=== PATIENT | female | born 1995 | race Caucasian/White ===

== ENCOUNTER 2019-02-05 12:57 | Emergency (ER) | payer OTHER ==
--- NOTE | 2019-02-05 13:09 | PDOC ---
Rapid Medical Evaluation Time Seen by Provider: 02/05/19 12:59 Medical Evaluation: Allergies Allergy/AdvReac Type Severity Reaction Status Date / Time No Known Allergies Allergy Verified 11/08/14 12:30 02/05/19 13:06 I have performed a brief in-person evaluation of this patient. The patient presents with a chief complaint of: 2 weeks of chest pain, cough/ headache since today, saw PCP yesterday. has IUD no OCP, denies recent travel/ surgeries. hx of asthma/anemia Pertinent physical exam findings: lungs CTAB I have ordered the following: labs, EKG The patient will proceed to the ED for further evaluation. Discharge Disposition - Diagnosis Chest pain - Referrals - Patient Instructions - Post Discharge Activity
[2019-02-05 13:10] VITALS: BP 132/64; PULSE 81; TEMP 98.3; BMI 20.5
[2019-02-05 13:33] LABS: BASO % 0.5 % (0-2.0); EOS % 2.2 % (0-4.5); HEMATOCRIT 39.6 % (32.4-45.2); HEMOGLOBIN 13.1 GM/dL (10.7-15.3); LYMPH % 32.7 % (8-40); MCH 28.2 pg (25.7-33.7); MEAN CELL VOLUME 85.4 fl (80-96); MEAN PLT VOLUME 8.1 fl (7.5-11.1); MONO % 7.7 % (3.8-10.2); NEUT % 56.9 % (42.8-82.8); PLATELET COUNT 316 K/MM3 (134-434); RBC 4.64 M/mm3 (3.60-5.2); RDW 14.8 % (11.6-15.6); WHITE BLOOD COUNT 7.2 K/mm3 (4.0-10.0)
[2019-02-05] MEDS ORDERED: predniSONE 20 MG TABLET (UD) ONE (14:01)
[2019-02-05] MEDS ORDERED: ALBUTEROL SO4 0.083% IH SOL 2.5 MG/3 ML VIAL.NEB. NEB ONE (14:01)
[2019-02-05] MEDS ORDERED: predniSONE 20 MG TABLET (UD) PO ONE (14:02)
--- NOTE | 2019-02-05 14:05 | PDOC ---
History of Present Illness - General Chief Complaint: Chest Pain Stated Complaint: CHEST PAIN Time Seen by Provider: 02/05/19 12:59 History Source: Patient Exam Limitations: No Limitations - History of Present Illness Initial Comments: 02/05/19 16:54 Patient came for evaluation of chest pain for the past 3 weeks. States was seen by her PMD who encouraged anti-inflammatories but also due to her significant family history of mother with 2 CVAs in an early age and father with an IN before the age of 40 felt she needed to have further evaluation. She ordered some laboratory work to be drawn which she went for yesterday, but states per direction of PMD instructed to come to emergency department if chest pain was recurrent. Patient also states this morning woke up with a call and felt some chest tightness. Denies numbness or tingling to hands or feet, denies any dizziness. However states has pain with movement, and some mild shortness of breath. Suffers from asthma but has not used her inhaler 02/05/19 17:36 Is this a multiple visit Asthma Patient?: No Timing/Duration: reports: intermittent Severity: reports: mild Associated Symptoms: reports: cough, fever/chills, nasal congestion Past History - Travel Traveled outside of the country in the last 30 days: No Close contact w/someone who was outside of country & ill: No - Past Medical History Allergies/Adverse Reactions: Allergies Allergy/AdvReac Type Severity Reaction Status Date / Time metoclopramide [From Reglan] Allergy Severe Difficulty Verified 02/05/19 13:10 Breathing Home Medications: Ambulatory Orders Ibuprofen [Motrin -] 600 mg PO TID PRN #21 tablet 11/08/14 Oxycodone HCl/Acetaminophen [Percocet 5/325 -] 1 tab PO Q6H PRN #20 tablet 11/08 Albuterol Sulfate Inhaler - [Ventolin HFA Inhaler -] 1 - 2 inh PO Q4H #1 inhaler 02/05/19 predniSONE [Deltasone -] 20 mg PO BID #8 tablet 02/05/19 Anemia: Yes Asthma: Yes COPD: No - Immunization History Immunization Up to Date: Yes - Psycho Social/Smoking Cessation Hx Smoking History: Never smoked Have you smoked in the past 12 months: No Information on smoking cessation initiated: No Hx Alcohol Use: No Drug/Substance Use Hx: No Substance Use Type: None Review of Systems - Review of Systems Able to Perform ROS?: Yes Is the patient limited Vietnamese proficient: Yes Constitutional: Yes: Symptoms Reported, See HPI, Malaise. No: Chills, Fever HEENTM: No: Symptoms Reported Respiratory: Yes: Symptoms reported, See HPI, Cough, Shortness of Breath, Wheezing Cardiac (ROS): Yes: Symptoms Reported, See HPI, Chest Pain : Yes: Symptoms Reported Musculoskeletal: Yes: Symptoms Reported, See HPI All Other Systems: Reviewed and Negative *Physical Exam - Vital Signs Last Vital Signs Temp Pulse Resp BP Pulse Ox 98.3 F 81 18 132/64 100 02/05/19 13:08 02/05/19 13:08 02/05/19 13:08 02/05/19 13:08 02/05/19 13:08 - Physical Exam General Appearance: Yes: Nourished, Appropriately Dressed. No: Apparent Distress HEENT: positive: DANNA, Normal ENT Inspection, TMs Normal, Pharynx Normal Neck: positive: Supple. negative: Tender, Lymphadenopathy (R), Lymphadenopathy (L) Respiratory/Chest: positive: Chest Tender, Lungs Clear (But diminished,), Wheezing (Some tightness with deep inspiration but able to take deep breaths, also reproduces some mild pleuritic type chest pain) Cardiovascular: positive: Regular Rate Gastrointestinal/Abdominal: positive: Soft. 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, Fully Oriented, Alert, Normal Mood/ Affect, Normal Response, Motor Strength 5/5 Heart Score/ECG Review - ECG Intrepretation Rhythm: Regular Rhythm - ST and T Non Specific ST-T Wave changes: No - ECG Impressions Normal ECG: Yes Non-specific ST Elevation: No Ischemic Changes: No ED Treatment Course - LABORATORY CBC & Chemistry Diagram: 02/05/19 13:10 02/05/19 13:10 - ADDITIONAL ORDERS Additional order review: 02/05/19 13:10 RBC 4.64 MCV 85.4 MCHC 33.0 RDW 14.8 MPV 8.1 Neutrophils % 56.9 Lymphocytes % 32.7 Monocytes % 7.7 Eosinophils % 2.2 Basophils % 0.5 ED Progress Note - Progress Note Progress Note: 02/05/19 17:01 Much improved after albuterol nebulizer and prednisone, will treat for some asthma exacerbation and encourage patient to follow-up. Discussed need to return to emergency department if symptoms recur or worsen, however much of this chest pain that has been chronic now in nature could be related to her respiratory status. Patient agrees feels better and will follow-up as scheduled next Saturday02/05/19 17:30 Discharge - Discharge Information Problems reviewed: Yes Clinical Impression/Diagnosis: Chest pain Qualifiers: Chest pain type: chest pain on breathing Qualified Code(s): R07.1 - Chest pain on breathing Asthma Qualifiers: Asthma severity: moderate Asthma persistence: unspecified Asthma complication type: unspecified Qualified Code(s): J45.909 - Unspecified asthma, uncomplicated Condition: Stable Disposition: HOME - Admission No - Additional Discharge Information Prescriptions: Albuterol Sulfate Inhaler - [Ventolin HFA Inhaler -] 1 - 2 inh PO Q4H #1 inhaler predniSONE [Deltasone -] 20 mg PO BID #8 tablet - Follow up/Referral Referrals: Bala Pitts MD [Primary Care Provider] - - Patient Discharge Instructions Patient Printed Discharge Instructions: DI for Asthma -- Adult Additional Instructions: Rest, drink lots of fluids: Teas, water, soups, Pedialyte Saltwater gargles Steamy showers/seem to face break up mucus Avoid contact with others until fevers and cough resolved Lots of handwashing and good hygiene Continue [id number] medications for symptomatic relief Tylenol or Motrin for fever and pain Continue albuterol nebulizers every 4-6 hours for the next 2 days then as needed for continued cough Prednisone as directed until completed Followup with private physician in one to 2 days Return to emergency department / pediatric hospital for worsened symptoms, fevers, dehydration - Post Discharge Activity Work/Back to School Note: Back to Work
[2019-02-05 14:06] LABS: ALBUMIN 3.7 g/dl (3.4-5.0); BILIRUBIN,TOTAL 0.1 mg/dL (0.2-1); BLOOD UREA NITROGEN 10.8 mg/dL (7-18); CALCIUM 8.8 mg/dL (8.5-10.1); CREATININE 0.6 mg/dL (0.55-1.3); POTASSIUM 3.9 mmol/L (3.5-5.1); TOT PROT 6.8 g/dl (6.4-8.2)
--- NOTE | 2019-02-05 14:30 | PDOC ---
History of Present Illness - General Chief Complaint: Chest Pain Stated Complaint: CHEST PAIN Time Seen by Provider: 02/05/19 12:59 History Source: Patient Exam Limitations: No Limitations - History of Present Illness Is this a multiple visit Asthma Patient?: No Past History - Past Medical History Allergies/Adverse Reactions: Allergies Allergy/AdvReac Type Severity Reaction Status Date / Time metoclopramide [From Reglan] Allergy Severe Difficulty Verified 02/05/19 13:10 Breathing Home Medications: Ambulatory Orders Ibuprofen [Motrin -] 600 mg PO TID PRN #21 tablet 11/08/14 Oxycodone HCl/Acetaminophen [Percocet 5/325 -] 1 tab PO Q6H PRN #20 tablet 11/08 Albuterol Sulfate Inhaler - [Ventolin HFA Inhaler -] 1 - 2 inh PO Q4H #1 inhaler 02/05/19 predniSONE [Deltasone -] 20 mg PO BID #8 tablet 02/05/19 Anemia: Yes Asthma: Yes COPD: No - Immunization History Immunization Up to Date: Yes - Psycho Social/Smoking Cessation Hx Smoking History: Never smoked Have you smoked in the past 12 months: No Information on smoking cessation initiated: No Hx Alcohol Use: No Drug/Substance Use Hx: No Substance Use Type: None *Physical Exam - Vital Signs Last Vital Signs Temp Pulse Resp BP Pulse Ox 98.3 F 81 18 132/64 100 02/05/19 13:08 02/05/19 13:08 02/05/19 13:08 02/05/19 13:08 02/05/19 13:08 ED Treatment Course - LABORATORY CBC & Chemistry Diagram: 02/05/19 13:10 02/05/19 13:10 - ADDITIONAL ORDERS Additional order review: Laboratory Results 02/05/19 13:10 Sodium 140 Potassium 3.9 Chloride 107 Carbon Dioxide 28 Anion Gap 5 L BUN 10.8 Creatinine 0.6 Est GFR (CKD-EPI)AfAm 148.90 Est GFR (CKD-EPI)NonAf 128.48 Random Glucose 96 Calcium 8.8 Total Bilirubin 0.1 L AST 14 L ALT 17 Alkaline Phosphatase 97 Total Protein 6.8 Albumin 3.7 02/05/19 13:10 RBC 4.64 MCV 85.4 MCHC 33.0 RDW 14.8 MPV 8.1 Neutrophils % 56.9 Lymphocytes % 32.7 Monocytes % 7.7 Eosinophils % 2.2 Basophils % 0.5 - Medications Given in the ED: ED Medications Discontinued Medications Generic Name Dose Route Start Last Admin Trade Name Rosibel PRN Reason Stop Dose Admin Albuterol Sulfate 1 amp 02/05/19 14:01 02/05/19 14:08 Ventolin 0.083% Nebulizer Soln - NEB 02/05/19 14:02 1 amp ONCE ONE Administration Prednisone 40 mg 02/05/19 14:02 02/05/19 14:08 Deltasone - PO 02/05/19 14:03 40 mg ONCE ONE Administration Discharge - Discharge Information Problems reviewed: Yes Clinical Impression/Diagnosis: Chest pain Qualifiers: Chest pain type: chest pain on breathing Qualified Code(s): R07.1 - Chest pain on breathing Asthma Qualifiers: Asthma severity: moderate Asthma persistence: unspecified Asthma complication type: unspecified Qualified Code(s): J45.909 - Unspecified asthma, uncomplicated Condition: Stable Disposition: HOME - Admission No - Additional Discharge Information Prescriptions: Albuterol Sulfate Inhaler - [Ventolin HFA Inhaler -] 1 - 2 inh PO Q4H #1 inhaler predniSONE [Deltasone -] 20 mg PO BID #8 tablet - Follow up/Referral Referrals: Bala Pitts MD [Primary Care Provider] - - Patient Discharge Instructions Patient Printed Discharge Instructions: DI for Asthma -- Adult Additional Instructions: Rest, drink lots of fluids: Teas, water, soups, Pedialyte Saltwater gargles Steamy showers/seem to face break up mucus Avoid contact with others until fevers and cough resolved Lots of handwashing and good hygiene Continue [id number] medications for symptomatic relief Tylenol or Motrin for fever and pain Continue albuterol nebulizers every 4-6 hours for the next 2 days then as needed for continued cough Prednisone as directed until completed Followup with private physician in one to 2 days Return to emergency department / pediatric hospital for worsened symptoms, fevers, dehydration - Post Discharge Activity Work/Back to School Note: Back to Work
--- NOTE | 2019-02-06 12:56 | EKG ---
Test Reason : Blood Pressure : / mmHG Vent. Rate : 083 BPM Atrial Rate : 083 BPM P-R Int : 142 ms QRS Dur : 084 ms QT Int : 392 ms P-R-T Axes : 073 086 067 degrees QTc Int : 460 ms NORMAL SINUS RHYTHM WITH SINUS ARRHYTHMIA NONSPECIFIC T WAVE ABNORMALITY WHEN COMPARED WITH ECG OF 02-AUG-2014 22:47, NO SIGNIFICANT CHANGE WAS FOUND Confirmed by DEEPA KENNY MD ([id number]) on 02/06/2019 12:55:53 PM Referred By: Confirmed By:DEEPA KENNY MD
== END 2019-02-05 14:35 | disposition home or self-care (01) ==
LOC: JERFT 12:57
PROC: 3E0F7GC Introduction of Other Therapeutic Substance into Respiratory Tract, Via Natural or Artificial Opening (ICD-10-PCS; principal; 2019-02-05)
DX: J45.909 Unspecified asthma, uncomplicated (principal); R07.1 Chest pain on breathing; Z86.2 Personal history of diseases of the blood and blood-forming organs and certain disorders involving the immune mechanism; Z88.8 Allergy status to other drugs, medicaments and biological substances
CPT/HCPCS: 36415; 71046-TC-FY; 80053; 85025; 93005; 93010; 99282-25

== ENCOUNTER 2019-06-22 19:35 | Emergency (ER) | payer OTHER ==
[2019-06-22 19:55] VITALS: BP 122/70; PULSE 90; TEMP 98.2; BMI 20.7
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
[2019-06-22 22:42] LABS: PH,URINE 6.5 (5.0-8.0); URINE APPEARANCE CLEAR; URINE BILIRUBIN NEGATIVE (NEGATIVE); URINE COLOR YELLOW; URINE GLUCOSE (UA) NEGATIVE (NEGATIVE); URINE KETONE TRACE (NEGATIVE); URINE LEUK ESTERASE NEGATIVE (NEGATIVE); URINE NITRITE NEGATIVE (NEGATIVE); URINE PROTEIN 30 (NEGATIVE)
[2019-06-22] MEDS ORDERED: KETOROLAC TROMETHAMINE 30 MG/1 ML VIAL IM ONE (22:47)
[2019-06-22] MEDS ORDERED: ONDANSETRON *ODT* 4 MG TABLET SL ONE (22:47)
[2019-06-22] MEDS ORDERED: KETOROLAC TROMETHAMINE 30 MG/1 ML VIAL ONE (23:01)
[2019-06-22] MEDS ORDERED: ONDANSETRON *ODT* 4 MG TABLET ONE (23:02)
== END 2019-06-22 23:08 | disposition home or self-care (01) ==
LOC: JERFT 19:35
PROC: 3E0233Z Introduction of Anti-inflammatory into Muscle, Percutaneous Approach (ICD-10-PCS; principal; 2019-06-22)
DX: S06.0X0A Concussion without loss of consciousness, initial encounter (principal); Y04.2XXA Assault by strike against or bumped into by another person, initial encounter; Y93.89 Activity, other specified; Y92.89 Other specified places as the place of occurrence of the external cause; Y99.8 Other external cause status; Y07.9 Unspecified perpetrator of maltreatment and neglect; Z86.2 Personal history of diseases of the blood and blood-forming organs and certain disorders involving the immune mechanism; Z87.09 Personal history of other diseases of the respiratory system; Z88.8 Allergy status to other drugs, medicaments and biological substances
CPT/HCPCS: 70450-TC; 81003; 84703; 96372; 99284-25; Q0162

== ENCOUNTER 2020-05-25 17:56 | Emergency (ER) | payer OTHER ==
[2020-05-25 18:31] VITALS: BP 99/59; PULSE 94; TEMP 99.2; BMI 20.5
[2020-05-25 22:43] LABS: URINE APPEARANCE CLEAR; URINE BILIRUBIN NEGATIVE (NEGATIVE); URINE COLOR YELLOW; URINE GLUCOSE (UA) NEGATIVE (NEGATIVE); URINE KETONE TRACE (NEGATIVE); URINE LEUK ESTERASE NEGATIVE (NEGATIVE); URINE NITRITE NEGATIVE (NEGATIVE); URINE PROTEIN NEGATIVE (NEGATIVE); URINE UROBILINOGEN 0.2 mg/dL (0.2-1.0)
[2020-05-25 22:50] LABS: ALBUMIN 3.9 g/dl (3.4-5.0); CALCIUM 9.1 mg/dL (8.5-10.1)
[2020-05-25 22:54] LABS: BILIRUBIN,TOTAL 0.3 mg/dL (0.2-1); TOT PROT 7.4 g/dl (6.4-8.2)
[2020-05-25 22:58] LABS: BLOOD UREA NITROGEN 10.5 mg/dL (7-18); CREATININE 0.6 mg/dL (0.55-1.3); POTASSIUM 4.1 mmol/L (3.5-5.1)
[2020-05-26 00:14] LABS: BASO % 0.2 % (0-2.0); EOS % 1.2 % (0-4.5); HEMATOCRIT 37.9 % (32.4-45.2); HEMOGLOBIN 12.5 GM/dL (10.7-15.3); LYMPH % 35.8 % (8-40); MCH 27.9 pg (25.7-33.7); MCHC 32.9 g/dl (32.0-36.0); MEAN CELL VOLUME 84.7 fl (80-96); MEAN PLT VOLUME 8.8 fl (7.5-11.1); MONO % 5.8 % (3.8-10.2); PLATELET COUNT 368 K/MM3 (134-434); RBC 4.48 M/mm3 (3.60-5.2); RDW 14.1 % (11.6-15.6); WHITE BLOOD COUNT 9.4 K/mm3 (4.0-10.0)
[2020-05-26 00:19] LABS: INR 1.21 (0.83-1.09); PROTHROMBIN TIME (PATIENT) 14.8 SEC (9.7-13.0)
[2020-05-26 00:22] LABS: ACTIVATED PTT 43.2 SECONDS (25.2-36.5)
== END 2020-05-26 00:58 | disposition home or self-care (01) ==
LOC: JER 17:56
DX: O26.891 Other specified pregnancy related conditions, first trimester (principal); Z3A.01 Less than 8 weeks gestation of pregnancy
CPT/HCPCS: 36415; 76817-TC; 80053; 81003; 84702; 84703; 85025; 85610; 85730; 86850; 86900; 86901; 99284-25

== ENCOUNTER 2020-05-28 20:59 | Emergency (ER) | payer OTHER ==
[2020-05-28 21:10] VITALS: BP 104/56; PULSE 96; TEMP 98.5; BMI 20.5
== END 2020-05-28 22:40 | disposition home or self-care (01) ==
LOC: JER 20:59
DX: Z32.01 Encounter for pregnancy test, result positive (principal); Z3A.01 Less than 8 weeks gestation of pregnancy
CPT/HCPCS: 36415; 84702; 99283-25

== ENCOUNTER 2021-01-13 16:05 | Emergency (ER) | payer OTHER ==
[2021-01-13 16:26] VITALS: BMI 26.1
[2021-01-13] MEDS ORDERED: ACETAMINOPHEN 1000 MG/100 ML VIAL (NON FORMULARY) IVPB ONE (17:43)
[2021-01-13] MEDS: ALBUTEROL SO4 2.5/IPRATROPIUM 0.5 INH SOL 3 ML VIAL.NEB. NEB SCH ×3 (18:00→18:30)
[2021-01-13] MEDS ORDERED: ACETAMINOPHEN INJECTION 100 ML IVPB ONE (18:01)
[2021-01-13] MEDS ORDERED: ALBUTEROL SO4 2.5/IPRATROPIUM 0.5 INH SOL 3 ML VIAL.NEB. NEB ONE (18:01)
[2021-01-13 19:38] LABS: HEMATOCRIT 30.4 % (32.4-45.2); HEMOGLOBIN 9.8 GM/dL (10.7-15.3); MCH 23.3 pg (25.7-33.7); MCHC 32.3 g/dl (32.0-36.0); MEAN CELL VOLUME 72.1 fl (80-96); MEAN PLT VOLUME 7.2 fl (7.5-11.1); PLATELET COUNT 274 10^3/uL (134-434); RBC 4.22 M/mm3 (3.60-5.2); RDW 24.2 % (11.6-15.6)
[2021-01-13 19:43] LABS: CHLORIDE 107 mmol/L (98-107); SODIUM 138 mmol/L (136-145)
[2021-01-13 19:47] LABS: CALCIUM 8.1 mg/dL (8.5-10.1)
[2021-01-13 19:48] LABS: ALBUMIN 2.3 g/dl (3.4-5.0); ANION GAP 8 MMOL/L (8-16); BLOOD UREA NITROGEN 5.1 mg/dL (7-18); CO2 24 mmol/L (21-32); GLUCOSE,RANDOM 71 mg/dL (74-106)
[2021-01-13 19:51] LABS: CREATININE 0.4 mg/dL (0.55-1.3); SGOT/AST 81 U/L (15-37); SGPT/ALT 70 U/L (13-61)
[2021-01-13 19:52] LABS: TOT PROT 6.1 g/dl (6.4-8.2)
[2021-01-13 19:53] LABS: BILIRUBIN,TOTAL 0.2 mg/dL (0.2-1)
[2021-01-13 19:54] LABS: ALK PHOS 143 U/L (45-117)
[2021-01-13 19:56] LABS: N-TERMINAL BNP 214.9 pg/ml (5-125)
[2021-01-13 21:31] LABS: ANISOCYTOSIS 3+; MACROCYTOSIS 0; OVALOCYTE 1+; PLATELET ESTIMATE NORMAL; TARGET CELLS 1+
[2021-01-14 00:02] VITALS: BP 104/53; PULSE 100; TEMP 98.4
== END 2021-01-13 23:17 | disposition home or self-care (01) ==
LOC: JER 16:05
PROC: 3E0333Z Introduction of Anti-inflammatory into Peripheral Vein, Percutaneous Approach (ICD-10-PCS; principal; 2021-01-13)
PROC: 3E0F7GC Introduction of Other Therapeutic Substance into Respiratory Tract, Via Natural or Artificial Opening (ICD-10-PCS; 2021-01-13)
DX: O99.513 Diseases of the respiratory system complicating pregnancy, third trimester (principal); J45.901 Unspecified asthma with (acute) exacerbation; Z3A.37 37 weeks gestation of pregnancy
CPT/HCPCS: 36415; 80053; 82550; 83880; 84484; 85025; 93005; 93010; 99284-25; C9803; J0131; U0003; U0005

== ENCOUNTER 2021-07-09 15:27 | Emergency (ER) | payer OTHER ==
[2021-07-09 15:32] VITALS: BP 111/71; PULSE 67; TEMP 97; BMI 23.6
[2021-07-09] MEDS ORDERED: SODIUM CHLORIDE 0.9% 500 ML INFUS.BAG IV ONE (16:20)
[2021-07-09 16:57] LABS: BASO % 0.2 % (0-2.0); EOS % 2.9 % (0-4.5); HEMATOCRIT 37.2 % (32.4-45.2); HEMOGLOBIN 12.3 GM/dL (10.7-15.3); LYMPH % 33.5 % (8-40); MCH 28.1 pg (25.7-33.7); MCHC 33.2 g/dl (32.0-36.0); MEAN CELL VOLUME 84.7 fl (80-96); MEAN PLT VOLUME 7.5 fl (7.5-11.1); MONO % 4.6 % (3.8-10.2); NEUT % 58.8 % (42.8-82.8); PLATELET COUNT 377 10^3/uL (134-434); RBC 4.39 M/mm3 (3.60-5.2); RDW 16.6 % (11.6-15.6); WHITE BLOOD COUNT 7.2 K/mm3 (4.0-10.0)
[2021-07-09 17:00] LABS: EPI CELLS 6 /uL (0-25.1); HYALINE CASTS 0 /uL (0-3.1); PH,URINE 7.5 (5.0-8.0); URINE APPEARANCE CLEAR; URINE BACTERIA 21 /uL (0-1359); URINE BILIRUBIN NEGATIVE (NEGATIVE); URINE COLOR YELLOW; URINE GLUCOSE (UA) NEGATIVE (NEGATIVE); URINE KETONE NEGATIVE (NEGATIVE); URINE LEUK ESTERASE NEGATIVE (NEGATIVE); URINE NITRITE NEGATIVE (NEGATIVE); URINE PROTEIN NEGATIVE (NEGATIVE); URINE RBC 307 /uL (0-23.9); URINE WBC 4 /uL (0-25.8)
[2021-07-09 17:22] LABS: CHLORIDE 108 mmol/L (98-107); SODIUM 142 mmol/L (136-145)
[2021-07-09 17:26] LABS: ALBUMIN 3.9 g/dl (3.4-5.0); ANION GAP 3 MMOL/L (8-16); BLOOD UREA NITROGEN 8.4 mg/dL (7-18); CO2 31 mmol/L (21-32); GLUCOSE,RANDOM 80 mg/dL (74-106)
[2021-07-09 17:28] LABS: CREATININE 0.7 mg/dL (0.55-1.3); SGOT/AST 14 U/L (15-37)
[2021-07-09 17:29] LABS: TOT PROT 7.2 g/dl (6.4-8.2)
[2021-07-09 17:30] LABS: BILIRUBIN,TOTAL 0.2 mg/dL (0.2-1)
[2021-07-09 17:31] LABS: ALK PHOS 81 U/L (45-117)
[2021-07-09 17:34] LABS: SGPT/ALT 19 U/L (13-61)
== END 2021-07-09 18:56 | disposition home or self-care (01) ==
LOC: JER 15:27
DX: R53.1 Weakness (principal)
CPT/HCPCS: 36415; 80053; 81003; 84702; 85025; 86850; 86900; 86901; 87086; 99283-25